=== PATIENT | female | born 2000 | race African-American/Black ===

== ENCOUNTER 2024-04-20 09:45 | Emergency (ER) | payer SELFPAY ==
[~2024-04-20] VITALS: Ht 167.6 cm; Wt 60.0 kg
[2024-04-20 09:55] VITALS: BP 147/103; PULSE 83; RESP 18; TEMP 97.7; O2SAT 100
[2024-04-20 10:54] LABS: BASOPHILS % 0.7 % (0.0-2.0); EOSINOPHILS % 1.1 % (0.0-5.0); HEMOGLOBIN. 12.6 g/dL (12.0-16.0); LYMPHOCYTES % 11.7 % (20.0-50.0); MEAN CORPUSCULAR HEMOGLOBIN 30.7 pg (28.0-32.0); MEAN CORPUSCULAR HGB CONC 32.2 g/dL (31.0-37.0); MEAN CORPUSCULAR VOLUME 95.3 fL (81.0-99.0); MEAN PLATELET VOLUME 9.4 fl (7.4-10.4); MONOCYTES % 4.9 % (2.0-8.0); NEUTROPHILS % 81.6 % (40.0-76.0); PLATELET 222 x1000/uL (130-400); RED BLOOD CELL COUNT 4.09 mill/uL (4.2-5.4); RED CELL DISTRIBUTION WIDTH 14.8 % (11.6-14.6); WHITE BLOOD COUNT 7.3 x1000/uL (4.5-11.0)
[2024-04-20 10:56] LABS: CHLORIDE 110 mEq/L (98-107); POTASSIUM 3.7 mEq/L (3.5-5.1); SODIUM 140 mEq/L (136-145)
[2024-04-20 10:57] LABS: CALCIUM 9.4 mg/dL (8.7-10.4); CARBON DIOXIDE 25 mEq/L (21-32)
[2024-04-20 11:02] LABS: CREATININE 0.9 mg/dL (0.6-1.0); GLUCOSE 91 mg/dL (70-105); UREA NITROGEN BLOOD 7 mg/dL (9-23)
[2024-04-20 11:04] LABS: ALANINE AMINOTRANSFERASE 16 IU/L (10-49); ASPARTATE AMINOTRANSFERASE 21 IU/L (<34); BILIRUBIN DIRECT 0.2 mg/dL (<=3.0); BILIRUBIN TOTAL 0.6 mg/dL (0.1-1.0); PROTEIN TOTAL 8.2 g/dL (6.0-8.3)
[2024-04-20 11:06] LABS: HCG SCREEN NEGATIVE
[2024-04-20] MEDS: KETOROLAC 30MG/ML VIAL IM STA (11:07)
[2024-04-20] MEDS: HYDROCODONE/ACETAMINOPHEN 5/325MG TABLET PO STA (11:08)
[2024-04-20] MEDS: ONDANSETRON 4MG ODT PO STA (11:08)
== END 2024-04-20 16:22 | disposition home or self-care (01) ==
LOC: ER 11:10
DX: N80.9 Endometriosis, unspecified (principal); Z90.89 Acquired absence of other organs
CPT/HCPCS: 99285; 74176; 76830; 76856; 80076; 80048; 84703; 83690; 85025; 36415; 96372; Q0162; J1885